=== PATIENT | female | born 1985 | race Caucasian/White ===

== ENCOUNTER 2017-10-08 14:53 | Emergency (ER) | payer BC ==
[~2017-10-08] VITALS: Ht 165.1 cm; Wt 54.4 kg
[2017-10-08] MEDS ORDERED: LAMO200T2 (15:01)
[2017-10-08] MEDS ORDERED: DESV50TA (15:01)
[2017-10-08 15:39] LABS: BILIRUBIN,URINE NEGATIVE (NEGATIVE); CLARITY,URINE CLEAR; COLOR,URINE YELLOW; GLUCOSE, URINE (UA) NEGATIVE (NEGATIVE); KETONES,URINE NEGATIVE (NEGATIVE); LEUKOCYTE ESTERASE ,URINE NEGATIVE (NEGATIVE); NITRITE,URINE NEGATIVE (NEGATIVE); PH,URINE 7 (5-9); PROTEIN,URINE NEGATIVE (NEGATIVE); UROBILINOGEN,URINE NORMAL (NORMAL)
[2017-10-08] MEDS ORDERED: NITR-65 PO (15:51)
[2017-10-08] MEDS ORDERED: TAMS0.4C98 PO (15:51)
--- NOTE | 2017-10-08 15:52 | ED GU-Female ---
General Chief Complaint: -Female Stated Complaint: UNABLE TO URINATE Nursing Triage Note: pt reports she had exploritory abdominal sx yesterday for possible cyst. pt states since the surgery she has had difficulty urinating. Nursing Sepsis Screen: No Definite Risk Source: patient History of Present Illness Date Seen by Provider: Oct 08, 2017 Time Seen by Provider: 15:25 Initial Comments PT ARRIVES VIA POV FROM HOME PT HAD EXPLORATORY ABDOMINAL SURGERY YESTERDAY AT [facility] BY DR. KWAN FROM [facility] [place] PT STATES THEY THOUGHT SHE HAD A HERNIA, BUT DID NOT FIND ONE--ONLY FOUND "KIDNEY IN THE WRONG PLACE" AND CLOSED HER BACK UP--NO REPAIR OF ANYTHING, ACCORDING TO PT WAS DISMISSED YESTERDAY AFTER SURGERY STATES SHE HAS NOT URINATED SINCE BEFORE SURGERY, AND HAS NOT HAD BM SINCE BEFORE SURGERY EITHER C/O MUCH PRESSURE OVER BLADDER, AND URGE TO URINATE BUT CANNOT NO FEVER NO NAUSEA/VOMITING PT IS ABLE TO EAT AND DRINK NO HISTORY OF SIMILAR CALLED SURGEON AG SERVICE MANAGER AT [facility], DR. BLANDON. WHO TOLD HER TO GO TO ER PCP: [facility] Allergies and Home Medications Allergies Coded Allergies: doxepin (Unverified Allergy, Unknown, 03/07/15) Home Medications Nitrofurantoin Monohyd/M-Cryst 100 Mg Capsule, 100 MG PO BID Prescribed by: LUTHER VERGARA on 10/08/17 1551 Tamsulosin HCl 0.4 Mg Cap, 0.4 MG PO DAILY Prescribed by: LUTHER VERGARA on 10/08/17 1551 Patient Home Medication List Home Medication List Reviewed: Yes Constitutional: no symptoms reported Respiratory: no symptoms reported Cardiovascular: no symptoms reported Gastrointestinal: see HPI Genitourinary: see HPI : No Musculoskeletal: no symptoms reported Skin: no symptoms reported Psychiatric/Neurological: No Symptoms Reported Past Okrauhd-Ulubai-Lgmivy Hx Patient Social History Alcohol Use: Regular Use (DRINKS SEVERAL GLASSES OF WINE EVERY NIGHT) Alcohol Beverage of Choice: Wine Recreational Drug Use: No Smoking Status: Current Everyday Smoker (1 PPD) Type Used: Cigarettes Recent Foreign Travel: No Contact w/Someone Who Travel: No Recent Infectious Disease Expo: No Recent Hopitalizations: Yes (abdominal sx yesterday) Physical Abuse: No Sexual Abuse: No Mistreated: No Fear: No Surgeries History of Surgeries: Yes (EXPLORATORY LAPAROTOMY 10/07/[address] KWAN FROM [place]) Surgeries: Abdominal, Section, Gallbladder Respiratory History of Respiratory Disorde: No Cardiovascular History of Cardiac Disorders: No Neurological History of Neurological Disord: No Reproductive System : No Female Reproductive Disorders: Denies Genitourinary History of Genitourinary Disor: No Gastrointestinal History of Gastrointestinal Di: No Musculoskeletal History of Musculoskeletal Dis: No Endocrine History of Endocrine Disorders: No HEENT History of HEENT Disorders: No Cancer History of Cancer: No Psychosocial History of Psychiatric Problem: Yes Behavioral Health Disorders: Depression Suicide Risk Score: 0 Integumentary History of Skin or Integumenta: No Blood Transfusions History of Blood Disorders: No Adverse Reaction to a Blood Tr: No Physical Exam Vital Signs Vital Signs - First Documented 10/08/17 15:27 Temp 97.0 Pulse 67 Resp 18 B/P (MAP) 137/92 (107) Pulse Ox 99 Capillary Refill : Less Than 3 Seconds General Appearance: WD/WN, no apparent distress, thin Cardiovascular: regular rate, rhythm, no murmur Respiratory: normal breath sounds, no respiratory distress, no accessory muscle use Gastrointestinal: normal bowel sounds, tenderness (MID ABDOMEN), other ( BLADDER DISTENDED. 4 CM SURGICAL INCISION TO RIGHT MID ABDOMEN IS INTACT, DRESSING CLEAN AND DRY. ) Back: normal inspection, no CVA tenderness Extremities: normal inspection, normal capillary refill Neurologic/Psychiatric: sheet rock taper II-XII nml as tested, no motor/sensory deficits, alert, normal mood/affect, oriented x 3 Progress/Results/Core Measures Suspected Sepsis Recent Fever Within 48 Hours: No Infection Criteria Present: None New/Unexplained Altered Menta: No Sepsis Screen: No Definite Risk Sepsis Diagnosis: SIRS Temperature:97.0 Pulse: 67 Respiratory Rate: 18 Blood Pressure 137 /92 Mean: 107 Results/Orders Lab Results Laboratory Tests Test 10/08/17 15:29 Range/Units Urine Color YELLOW Urine Clarity CLEAR Urine pH 7 5-9 Urine Specific [place] 1.005 L 1.016-1.022 Urine Protein NEGATIVE NEGATIVE Urine Glucose (UA) NEGATIVE NEGATIVE Urine Ketones NEGATIVE NEGATIVE Urine Nitrite NEGATIVE NEGATIVE Urine Bilirubin NEGATIVE NEGATIVE Urine Urobilinogen NORMAL NORMAL MG/DL Urine Leukocyte Esterase NEGATIVE NEGATIVE Urine RBC (Auto) NEGATIVE NEGATIVE Urine RBC NONE /HPF Urine WBC NONE /HPF Urine Crystals NONE /LPF Urine Bacteria NEGATIVE /HPF Urine Casts NONE /LPF Urine Mucus NEGATIVE /LPF Urine Culture Indicated NO Urine Test NEGATIVE NEGATIVE My Orders Orders - LUTHER VERGARA DO Catheter(Urinary) Insert & Ass 03,15 (10/08/17 15:30) Bladder Scan (10/08/17 15:30) Ua Culture If Indicated (10/08/17 15:30) Hcg,Qualitative Urine (10/08/17 15:48) Alfuzosin (Not Stocked) (Uroxatral (Not (10/08/17 16:00) Wound Dressing-Ed (10/08/17 16:18) Vital Signs/I&O Vital Sign - Last 12Hours 10/08/17 15:27 Temp 97.0 Pulse 67 Resp 18 B/P (MAP) 137/92 (107) Pulse Ox 99 Capillary Refill : Less Than 3 Seconds Blood Pressure Mean: 107 Progress Note : Progress Note BLADDER SCAN > 900 ML PLACED LAO AND IMMEDIATE RETURN OF > 1425 ML URINE WITH IMMEDIATE RELIEF OF DISCOMFORT CONVERTED TO LEG BAG PRIOR TO DISMISSAL Departure Impression Impression: Primary Impression: Acute urinary retention Additional Impression: Postoperative urinary retention Disposition: HOME, SELF-CARE Condition: Improved Departure-Patient Inst. [facility] Primary Care Physician Patient Instructions: How to Care for Your Lao Catheter, Female, Urinary Retention (DC) Add. Discharge Instructions: LOTS OF CLEAR LIQUIDS--NO COFFEE, POP OR TEA LAO CARE INSTRUCTED FOLLOW UP WITH YOUR SURGEON ON TUESDAY FOR FURTHER CARE All discharge instructions reviewed with patient and/or family. Voiced understanding. Scripts Tamsulosin HCl (Flomax) 0.4 Mg Cap 0.4 MG PO DAILY, #10 CAP Prov: LUTHER VERGARA DO 10/08/17 Nitrofurantoin Monohyd/M-Cryst (Macrobid 100 mg Capsule) 100 Mg Capsule 100 MG PO BID, #20 CAP Prov: LUTHER VERGARA DO 10/08/17 LUTHER VERGARA DO Oct 08, 2017 15:51
[2017-10-08] MEDS ORDERED: ALFUZOSIN HCL 10 MG TAB (UROXATRAL) PO SCH (16:00)
[2017-10-08 16:11] LABS: BACTERIA,URINE NEGATIVE /HPF
[2017-10-08 16:55] VITALS: BP 120/87
== END 2017-10-08 16:54 | disposition home or self-care (01) ==
LOC: EDUNIT# 14:53 → ER 14:55
DX: N99.89 Other postprocedural complications and disorders of genitourinary system (principal); R33.8 Other retention of urine; F32.9 Major depressive disorder, single episode, unspecified; F17.210 Nicotine dependence, cigarettes, uncomplicated; Z87.59 Personal history of other complications of pregnancy, childbirth and the puerperium; Z88.8 Allergy status to other drugs, medicaments and biological substances
CPT/HCPCS: 51702; 81000; 84703

== ENCOUNTER 2019-01-26 08:52 | Emergency (ER) | payer BC ==
[~2019-01-26] VITALS: Ht 165.1 cm; Wt 57.6 kg
[~2019-01-26 08:52] MED LIST: DESV50TA; LAMO200T2; NITR-65 PO; TAMS0.4C98 PO
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
--- OUTSIDE RECORDS SUMMARY | 2019-01-26 08:56 | XMS REPORT ---
Author Author Migration, Doctor Organization [facility]es[facility] [place] [facility] Address Unknown Phone Unavailable Care Team Providers Care Verification Specialist Name Role Phone Migration, Doctor Unavailable Unavailable PROBLEMS Type Condition ICD9-CM Code OSG38-HC Code Onset Dates Condition Status SNOMED Code Problem Asthma, unspecified asthma severity, unspecified whether complicated, unspecified whether persistent J45.909 Active 212784893 Problem Alcohol abuse F10.10 Active 28694985 Problem Bipolar 1 disorder F31.9 Active 789955175 ALLERGIES No Information ENCOUNTERS Encounter Location Date Diagnosis [facility] [address] [id number], [place] [id number] Oct, Bipolar 1 disorder F31.9 ; Alcohol abuse F10.10 ; Tobacco abuse Z72.0 and Tobacco abuse counseling Z71.[address] [facility] [id number], [place] [address] May, Nasal bleeding R04.0 ; Vaginal itching N89.8 and Injury of right shoulder, subsequent encounter S49.91XD [facility] [id number], [place] [address] Oct, Fatigue, unspecified type R53.83 ; Hair loss L65.9 and Bipolar 1 disorder F31.[address] [id number] [place] [id number] Sep, [facility] [id number] [place] [address] Sep, Bipolar 1 disorder F31.9 [facility] [id number], [place] [address] Aug, [facility] [address] [id number], [place] [address] Aug, RUQ abdominal mass R19.01 [facility] [address] [id number], [place] [address] Aug, [facility] [address] [id number], [place] [address] Aug, [facility] [address] [id number], [place] [address] Aug, Well woman exam with routine gynecological [...] Acute vaginitis N76.0 and Vagina, candidiasis B37.3 [facility] [address] [id number], [place] [address] Aug, Bipolar 1 disorder F31.9 and Acute non-recurrent maxillary sinusitis J01.00 [facility] [address] [id number], [place] [address] Aug, [facility] [address] [id number], [place] [address] Jun, Dental examination Z01.20 [facility] [address] [id number], [place] 98[address] November, Dental examination Z01.20 [facility] [address] [id number], [place] [address] Sep, Yeast infection B37.9 ; RUQ abdominal mass R19.01 and EtOH dependence F10.[address] [id number], [place] [address] Sep, Vaginal itching L29.8 [facility] [address] [id number] [address] Oct, [facility] [address] [place] [address] Oct, [facility] [address] [facility] [id number], [place] [address] Jan, [facility] [address] [facility] [id number] [place] [address] Sep, [facility] [address] [facility] [id number], [place] [address] Sep, [facility] [address] [facility] [id number] [place] [address] Sep, [facility] [place] [address] [id number] [place] [id number] Aug, [facility] [place] [address] [id number] [place] [address] Jul, [facility] [address] [facility] [id number], [place] [address] Jul, [facility] [place] [address] [id number] [place] [address] Mar, [facility] [place] [address] [id number] [place] [address] Mar, [facility] [place] [address] [id number] [place] [address] Mar, [facility] [place] [address] [id number] [place] [address] Mar, [facility] [place] [address] [id number] [place] [address] Mar, [facility] [address] [facility] [id number], [place] [address] Mar, [facility] [place] [facility] [address] [facility] [id number], [place] [address] Mar, [facility] [place] [facility] [address] [facility] [id number], [place] [address] Mar, [facility] [place] [facility] [address] [facility] [id number], [place] [address] Mar, [facility] [place] [address] [facility] [id number], [place] [address] Mar, [facility] [address] [id number] [place] [address] Jan, [facility] [address] [id number] [place] [address] Jan, [facility] [address] [facility] [id number] [place] [address] Jan, [facility] [address] [id number], [place] [address] Dec, [facility] [address] [id number] [place] [address] Dec, [facility] [address] [id number], [place] [address] November, [facility] [address] [id number], [place] [address] Oct, [facility] [address] [id number], [place] [address] Sep, [facility] [address] [id number], [place] [address] Sep, [facility] [address] [id number], [place] [address] Sep, [facility] [address] [id number], [place] [address] Sep, [facility] [address] [facility] [id number], [place] [address] Sep, [facility] [address] [facility] [id number], [place] [address] Sep, [facility] [place] [address] [facility] [id number], [place] [id number] Aug, [facility] [address] [id number], [place] [address] May, [facility] [address] [facility] [id number] [place] [address] Dec, [facility] [address] [facility] [id number], [place] [address] Jun, [facility] [address] [facility] [id number], [place] [address] Jun, [facility] [address] [facility] [id number], [place] [address] Jun, IMMUNIZATIONS No Known Immunizations SOCIAL HISTORY Never Assessed REASON FOR VISIT [facility] [place] CARE VITAL SIGNS MEDICATIONS No [...]
--- OUTSIDE RECORDS SUMMARY | 2019-01-26 08:57 | XMS REPORT ---
Author Author Migration, Doctor Organization [facility]ITALTheng[facility] [place] [facility] Address Unknown Phone Unavailable Care Team Providers Care Asbestos Remover Name Role Phone Migration, Doctor Unavailable Unavailable PROBLEMS Type Condition ICD9-CM Code LMV45-DK Code Onset Dates Condition Status SNOMED Code Problem Bipolar 1 disorder F31.9 Active 533672536 ALLERGIES No Information ENCOUNTERS Encounter Location Date Diagnosis [facility] [address] [id number] [place] [id number] May, Nasal bleeding R04.0 ; Vaginal itching N89.8 and Injury of right shoulder, subsequent encounter S49.91XD [facility] [address] [id number] [place] [address] Oct, Fatigue, unspecified type R53.83 ; Hair loss L65.9 and Bipolar 1 disorder F31.9 [facility] [facility] [id number] [place] [address] Sep, [facility] [address] [id number] [place] [address] Sep, Bipolar 1 disorder F31.9 [facility] [address] [id number] [place] [address] Aug, [facility] [address] [id number] [place] [address] Aug, RUQ abdominal mass R19.[address] [id number] [place], [place] [address] Aug, [facility] [id number] [place] [id number] Aug, [facility] [address] [id number] [place] [address] Aug, Well woman exam with routine gynecological [...] Acute vaginitis N76.0 and Vagina, candidiasis B37.[address] [id number] [place] [id number] Aug, Bipolar 1 disorder F31.9 and Acute non-recurrent maxillary sinusitis J01.[id number] [place] [id number] Aug, [address] [place] [id number] Jun, Dental examination Z01.20 [address] [place] [address] [id number] November, Dental examination Z01.[address] [id number] [place] [address] [id number] Sep, Yeast infection B37.9 ; RUQ abdominal mass R19.01 and EtOH dependence F10.[address] [id number] [place] [address]25[address] 10 Sep, 2015 Vaginal itching L29.8 [id number] [place] [address] Oct, [facility] [place] [id number] [place] [address] Oct, [facility] [place] [address] [address] Jan, [facility] [place] [id number] [place] [address] Sep, [facility] [place] [id number] [place] [address] Sep, [facility] [place] [facility] [address] [id number] [place] [address] Sep, [facility] [place] [address] [id number] [place] [address] Aug, [facility] [place] [address] [id number] [place] [id number] Jul, [facility] [place] [facility] [address] [id number] [place] [address] Jul, [facility] [place] [address] [id number] [place] [address] Mar, [facility] [place] [address] [id number] [place] [address] Mar, [facility] [place] [address] [id number] [place] [address] Mar, [facility] [place] [address] [id number] [place] [address] Mar, [facility] [place] [address] [id number] [place] [id number] Mar, [facility] [place] [facility] [address] [facility] [id number] [place] [address] Mar, [facility] [place] [facility] [address]00565100[place], [place] [address] Mar, [facility] [place] [facility] [address]00565100[place], [place] [address] Mar, [facility] [place] [facility] [address] [facility] [id number], [place] [address] Mar, [facility] [place] [address] [facility] [id number] [place] [id number] Mar, [facility] [place] [facility] [address] [facility] [id number] [place] [address] Jan, [facility] [place] [facility] [address] [facility] [id number], [place] [address] Jan, [facility] [place] [facility] [address] [facility] [id number], [place] [address] Jan, [facility] [address] [id number] [place] [address] 28 Dec, 2011 [facility] [place] [facility] [address] [id number] [place] [address] Dec, [facility] [address] [id number] [place] [address] November, [facility] [place] [facility] [address] [id number] [place] [address] Oct, [facility] [address] [id number] [place] [address] Sep, [facility] [address] [id number] [place] [address] Sep, [facility] [place] [facility] [address] [id number] [place] [address] Sep, [facility] [place] [facility] [address] [id number] [place] [address] Sep, [facility] [address] [id number], [place] [address] Sep, [facility] [address] [facility] [id number], [place] [address] Sep, [facility] [address] [id number][place] [id number] Aug, [facility] [place] [facility] [address] [id number], [place] [address] May, [facility] [place] [facility] [address] [id number], [place] [address] 14 Dec, 2010 [facility] [place] [facility] [address] [facility] [id number], [place] [address] Jun, [facility] [place] [facility] [address] [id number], [place] [address] Jun, [facility] [place] [facility] [address] [facility] [id number] [place] [address] Jun, IMMUNIZATIONS No Known Immunizations SOCIAL HISTORY Never Assessed [place] [facility] [place] VITAL SIGNS MEDICATIONS Unknown Medications RESULTS No Results PROCEDURES No Known [...]
--- OUTSIDE RECORDS SUMMARY | 2019-01-26 08:57 | XMS REPORT ---
Author Author LITO RIVERO [facility] CenterAppw[facility] W[facility] Address [address] [place] [address] Care Team Providers Care Hand I Thermal Cutter Name Role Phone LITO RIVERO Unavailable PROBLEMS Type Condition ICD9-CM Code PFB36-OP Code Onset Dates Condition Status SNOMED Code Problem Bipolar 1 disorder F31.9 Active 251432134 ALLERGIES Substance Reaction Event Type Date Status Doxepin HCl hives Drug Allergy May, Active Codeine Phosphate hives Drug Allergy May, Active ENCOUNTERS Encounter Location Date Diagnosis [facility] [address] [id number], [place] [id number] May, Nasal bleeding R04.0 ; Vaginal itching N89.8 and Injury of right shoulder, subsequent encounter S49.91XD [facility] [address] [id number][place] [address] Oct, Fatigue, unspecified type R53.83 ; Hair loss L65.9 and Bipolar 1 disorder F31.9 [facility]CostumeWorksW[facility] [address] [id number], [place] [id number] Sep, [facility] [address] [id number], [place] [address] Sep, Bipolar 1 disorder F31.9 [facility] [address] [id number], [place] [address] Aug, [facility] [address] [id number], [place] 786[address] Aug, RUQ abdominal mass R19.01 [facility] [address] [id number], [place] 216965606 Aug, [facility] [address] [id number], [place] [address] Aug, [facility] [address] [id number], [place] [address] Aug, Well woman exam with routine gynecological [...] Acute vaginitis N76.0 and Vagina, candidiasis B37.[id number] [place] [address] 280848569 Aug, Bipolar 1 disorder F31.9 and Acute non-recurrent maxillary sinusitis J01.[address] [id number], [place] 9129540[address] Aug, [address] [id number] [place] [address] [id number] Jun, Dental examination Z01.[address] [id number] [place] [address] [id number] November, Dental examination Z01.[address] [id number], [place] 224147290 Sep, Yeast infection B37.9 ; RUQ abdominal mass R19.01 and EtOH dependence F10.[address] [id number], [place] 004505383 10 Sep, [address] [facility] [address] [id number] [address] Oct, [facility] [id number] [place] [address] Oct, [facility] [address] [place] [address] Jan, [facility] [place] [facility] [address] [facility] [id number] [place] [address] Sep, [facility] [place] [facility] [address] [facility] [id number] [place] [address] Sep, [facility] [place] [facility] [address] [facility] [id number] [place] [address] Sep, [facility] [place] [address] [id number] [place] [id number] Aug, [facility] [place] [address] [id number] [place] [address] Jul, [facility] [place] [facility] [address] [id number] [place] [address] Jul, [facility] [place] [address] [id number] [place] [id number] Mar, [facility] [place] [address] [id number] [place] [address]16[address] Mar, [facility] [place] [address] [id number] [place] [address] Mar, [facility] [place] [address] [id number] [place] [address] Mar, [facility] [place] [address] [id number] [place] 795[address] Mar, [facility] [place] [facility] [address] [facility] [id number] [place] [address] Mar, [facility] [place] [facility] [address] [facility] [id number] [place] [address] Mar, [facility] [place] [facility] [address] [facility] [id number] [place] [address] Mar, [facility] [place] [facility] [address] [facility] [id number] [place] [address] Mar, [facility] [place] [address] [facility] [id number] [place] [id number] Mar, [facility] [place] [facility] [address] [facility] [id number] [place] [address] Jan, [facility] [address] [id number] [place] [address] Jan, [facility] [place] [facility] [address] [id number] [place] [address] Jan, [facility] [address] [id number] [place] [address] Dec, [facility] [place] [facility] [address] [id number] [place] [address] Dec, [facility] [address] [id number] [place] [address] November, [facility] [place] [facility] [address] [id number] [place] [address] Oct, [facility] [address] [facility] [id number] [place] [address] Sep, [facility] [address] [id number] [place] [address] Sep, [facility] [address] [id number] [place] [address] Sep, [facility] [address] [id number] [address] Sep, [facility] [address] [id number] [place] [address] Sep, [facility] [place] [facility] [address] [facility] [id number] [place] [address] Sep, [facility] [place] [address] [facility] [id number][place] [id number] Aug, [facility] [place] [facility] [address] [facility] [id number] [place] [address] May, [facility] [place] [facility] [address] [facility] [id number] [place] [address] 14 Dec, 2010 [facility] [place] [facility] [address]00565[address] [address] Jun, [facility] [address] [facility] [id number] [place] [address] Jun, [facility] [address] [facility] [id number] [place] [address] Jun, IMMUNIZATIONS No Known Immunizations SOCIAL HISTORY Never Assessed REASON FOR VISIT yeast infection symptoms intermittent for several weeks Bigg RN PLAN OF CARE Activity Details Follow Up prn Reason: VITAL SIGNS Height 68.75 in 2018-05-05 Weight 125.0 lbs 2018-05-05 Temperature 98.3 degrees Fahrenheit 2018-05-05 Heart Rate 70 bpm 2018-05-05 Respiratory Rate 18 2018-05-05 BMI 18.59 kg/m2 2018-05-05 Blood pressure systolic 118 mmHg 2018-05-05 Blood pressure diastolic 82 mmHg 2018-05-05 MEDICATIONS Medication Instructions Dosage Frequency Start Date End Date Duration Status Fluconazole 150 MG Orally Once a day 1 tablet 24h May, May, 1 dose Active Pristiq 50 mg Orally Once a day 1 tablet 24h Active Lamictal 200 MG Orally once daily 1 tablet 24h Sep, 90 days Active Nystatin-Triamcinolone 238041-1.1 UNIT/GM Externally Twice a day as needed for vaginal itch 1 application to affected area May, Active RESULTS No Results PROCEDURES No Known [...]
--- OUTSIDE RECORDS SUMMARY | 2019-01-26 08:57 | XMS REPORT ---
Author Author Migration, Doctor Organization [facility] [place] [facility] Address Unknown Phone Unavailable Care Team Providers Care Billing Assistant Name Role Phone Migration, Doctor Unavailable Unavailable PROBLEMS Type Condition ICD9-CM Code [id number] Code Onset Dates Condition Status SNOMED Code Problem Bipolar 1 disorder F31.9 Active 492924116 ALLERGIES No Information ENCOUNTERS Encounter Location Date Diagnosis [facility] [address] [address] [id number], [place] [id number] Oct, [facility] [address] [id number], [place] [id number] May, Nasal bleeding R04.0 ; Vaginal itching N89.8 and Injury of right shoulder, subsequent encounter S49.91XD [facility] [id number], [place] [id number] Oct, Fatigue, unspecified type R53.83 ; Hair loss L65.9 and Bipolar 1 disorder F31.9 [facility] [address] [id number], [place] [id number] Sep, [facility] [address] [id number], [place] [id number] Sep, Bipolar 1 disorder F31.9 [facility] [address] [id number], [place] [id number] Aug, [facility] [address] [id number], [place] [id number] Aug, RUQ abdominal mass R19.01 [facility] [address] [id number] [place] [id number] Aug, [facility] [address] [id number], [place] [id number] Aug, [facility] [address] [id number], [place] [id number] 04 Aug, 2018 Well woman exam with [...] Acute vaginitis N76.0 and Vagina, candidiasis B37.[id number] [place] [address] [id number] Aug, Bipolar 1 disorder F31.9 and Acute non-recurrent maxillary sinusitis J01.[address] [id number] [place] [address] [id number] Aug, [address] [id number] [place] [address] [id number] Jun, Dental examination Z01.[address] [id number] [place] [address] [id number] November, Dental examination Z01.20 [address] [place] [address] [id number] Sep, Yeast infection B37.9 ; RUQ abdominal mass R19.01 and EtOH dependence F10.[address] [id number], [place] [id number] Sep, Vaginal itching L29.8 [facility] [id number] [place] [address] Oct, [facility] [id number] [place] [address] Oct, [facility] [id number] [place] [address] Jan, [facility] [id number] [place] [address] Sep, [facility] [place] [facility] [address] [id number] [place] [address] Sep, [facility] [place] [facility] [address] [facility] [id number] [place] [address] Sep, [facility] [address] [id number] [place] [id number] Aug, [facility] [address] [id number] [place] [id number] Jul, [facility] [place] [facility] [address] [id number] [place] [address] Jul, [facility] [address] [id number] [place] [id number] Mar, [facility] [address] [id number] [place] [id number] Mar, [facility] [address] [id number] [place] [id number] Mar, [facility] [address] [id number] [place] [id number] Mar, [facility] [address] [id number] [place] [id number] Mar, [facility] [place] [facility] [address]00565100[place] [address] Mar, [facility] [place] [facility] [address] [place] [address] Mar, [facility] [place] [facility] [address] [facility] [id number], [place] [address] Mar, [facility] [place] [facility] [address] [facility] [id number] [place] [address] Mar, [facility] [address] [facility] [id number] [place] [id number] Mar, [facility] [place] [facility] [address] [facility] [id number] [place] [address] Jan, [facility] [place] [facility] [address] [facility] [id number], [place] [address] Jan, [facility] [address] [id number] [place] [address] Jan, [facility] [place] [facility] [address] [id number] [place] [address] Dec, [facility] [place] [facility] [address] [id number] [place] [address] Dec, [facility] [place] [facility] [address] [id number] [place] [address] November, [facility] [address] [id number] [place] [address] Oct, [facility] [place] [facility] [address] [id number] [place] [address] Sep, [facility] [address] [id number] [place] [address] Sep, [facility] [place] [facility] [address] [id number] [place] [address] Sep, [facility] [address] [id number] [place] [address] Sep, [facility] [place] [facility] [address] [facility] [id number] [place] [address] Sep, [facility] [address] [id number], [place] [address] Sep, [facility] [address] [id number], [place] [id number] Aug, [facility] [place] [facility] [address] [id number] [place] [address] May, [facility] [place] [facility] [address] [id number], [place] [address] 14 Dec, 2010 [facility] [place] [facility] [address] [id number], [place] [address] Jun, [facility] [place] [facility] [address] [facility] [id number] [place] [address] Jun, [facility] [address] [facility] [id number] [place] [address] Jun, IMMUNIZATIONS No Known Immunizations SOCIAL HISTORY Never Assessed REASON FOR VISIT EMR-[facility] PLAN OF CARE VITAL SIGNS MEDICATIONS [...]
--- OUTSIDE RECORDS SUMMARY | 2019-01-26 08:57 | XMS REPORT ---
Author Author Migration, Doctor Organization [facility] [place] [facility] Address Unknown Phone Unavailable Care Team Providers Care Software Controls Engineer Name Role Phone Migration, Doctor Unavailable Unavailable PROBLEMS Type Condition ICD9-CM Code [id number] Code Onset Dates Condition Status SNOMED Code Problem Bipolar 1 disorder F31.9 Active [id number] ALLERGIES No Information ENCOUNTERS Encounter Location Date Diagnosis [facility] [address] [id number], [place] [id number] Oct, [facility] [address] [id number], [place] [id number] May, Nasal bleeding R04.0 ; Vaginal itching N89.8 and Injury of right shoulder, subsequent encounter S49.91XD [facility] [id number], [place] [id number] Oct, Fatigue, unspecified type R53.83 ; Hair loss L65.9 and Bipolar 1 disorder F31.9 [facility] [id number], [place] [id number] Sep, [facility] [address] [id number], [place] [id number] Sep, Bipolar 1 disorder F31.9 [facility] [address] [address] [id number], [place] [id number] Aug, [facility] [address] [id number], [place] [id number] Aug, RUQ abdominal mass R19.01 [facility] [address] [id number] [place] [id number] Aug, [facility] [address] [id number], [place] [id number] Aug, [facility] [address] [id number], [place] [id number] 04 Aug, 2018 Well woman exam with [...] Acute vaginitis N76.0 and Vagina, candidiasis B37.[address] [id number] [place] [address] [id number] Aug, Bipolar 1 disorder F31.9 and Acute non-recurrent maxillary sinusitis J01.[address] [id number] [place] [address] [id number] Aug, [address] [id number] [place] [address] [id number] Jun, Dental examination Z01.[address] [id number] [place] [address] [id number] November, Dental examination Z01.[address] [place] [address] [id number] Sep, Yeast infection B37.9 ; RUQ abdominal mass R19.01 and EtOH dependence F10.[address] [id number], [place] [id number] Sep, Vaginal itching L29.8 [facility] [id number] [place] [address] Oct, [facility] [id number] [place] [address] Oct, [facility] [id number] [place] [address] Jan, [facility] [id number] [place] [address] Sep, [facility] [place] [facility] [address] [id number] [place] [address] Sep, [facility] [place] [facility] [address] [facility] [id number] [place] [address] Sep, [facility] [address] [id number] [place] [id number] Aug, [facility] [address] [id number] [place] [id number] Jul, [facility] [place] [facility] [address] [id number] [place] [address] Jul, [facility] [address] [id number] [place] [id number] Mar, [facility] [address] [id number] [place] [id number] Mar, [facility] [address] [id number] [place] [id number] Mar, [facility] [address] [id number] [place] [id number] Mar, [facility] [address] [id number] [place] [id number] Mar, [facility] [place] [facility] [address]00565100[place] [address] Mar, [facility] [place] [facility] [address]100[facility] [address] Mar, [facility] [place] [facility] [address] [facility] [id number][place] [address] Mar, [facility] [place] [facility] [address] [facility] [id number] [place] [address] Mar, [facility] [address] [facility] [id number] [place] [id number] Mar, [facility] [place] [facility] [address] [facility] [id number] [place] [address] Jan, [facility] [place] [facility] [address] [facility] [id number][place] [address] Jan, [facility] [address] [id number] [place] [address] Jan, [facility] [place] [facility] [address] [id number] [place] [address] Dec, [facility] [place] [facility] [address] [id number] [place] [address] Dec, [facility] [place] [facility] [address] [id number] [place] [address] November, [facility] [address] [id number] [place] [address] Oct, [facility] [place] [facility] [address] [id number] [place] [address] Sep, [facility] [address] [id number] [place] [address] Sep, [facility] [place] [facility] [address] [id number] [place] [address] Sep, [facility] [address] [id number] [place] [address] Sep, [facility] [place] [facility] [address] [facility] [id number] [place] [address] Sep, [facility] [address] [id number], [place] [address] Sep, [facility] [address] [id number][place] [address] Aug, [facility] [place] [facility] [address] [id number] [place] [address] May, [facility] [place] [facility] [address] [id number], [place] [address] 14 Dec, 2010 [facility] [place] [facility] [address] [id number], [place] [address] Jun, [facility] [place] [facility] [address] [facility] [id number] [place] [address] Jun, [facility] [address] [facility] [id number] [place] [address] Jun, IMMUNIZATIONS No Known Immunizations SOCIAL HISTORY Never Assessed REASON FOR VISIT EMR-[facility] PLAN OF CARE VITAL SIGNS MEDICATIONS Unknown [...]
--- OUTSIDE RECORDS SUMMARY | 2019-01-26 08:57 | XMS REPORT ---
Author Author Migration, Doctor Organization [facility] [place] [facility] Address Unknown Phone Unavailable Care Team Providers Care Underground Conduit Installer Name Role Phone Migration, Doctor Unavailable Unavailable PROBLEMS Type Condition ICD9-CM Code HWW28-IW Code Onset Dates Condition Status SNOMED Code Problem Bipolar 1 disorder F31.9 Active 847346206 ALLERGIES No Information ENCOUNTERS Encounter Location Date Diagnosis [facility] [address] [id number], [place] [id number] Oct, [facility] [address] [id number], [place] [id number] May, Nasal bleeding R04.0 ; Vaginal itching N89.8 and Injury of right shoulder, subsequent encounter S49.91XD [facility] [id number], [place] [id number] Oct, Fatigue, unspecified type R53.83 ; Hair loss L65.9 and Bipolar 1 disorder F31.9 [facility] [address] [address] [id number], [place] [id number] Sep, [facility] [address] [id number], [place] [id number] Sep, Bipolar 1 disorder F31.9 [facility] [address] [address] [id number], [place] [id number] Aug, [facility]ENTERSEMJHWOLFF [address] [id number], [place] [id number] Aug, RUQ abdominal mass R19.01 [facility] [address] [id number] [place] [id number] Aug, [facility] [address] [id number], [place] [id number] Aug, [facility] [address] [id number], [place] [id number] 04 Aug, 2018 Well woman exam with [...] Acute vaginitis N76.0 and Vagina, candidiasis B37.[address] [id number] [place] [address] [id number] Aug, Bipolar 1 disorder F31.9 and Acute non-recurrent maxillary sinusitis J01.[address] [id number] [place] [address] [id number] Aug, [address] [id number] [place] [address] [id number] Jun, Dental examination Z01.[address] [id number] [place] [address] [id number] November, Dental examination Z01.20 [address] [place] [address] [id number] Sep, Yeast infection B37.9 ; RUQ abdominal mass R19.01 and EtOH dependence F10.[address] [id number], [place] [id number] Sep, Vaginal itching L29.8 [facility] [address] [id number] [place] [address] Oct, [facility] [id number] [place] [address] Oct, [facility] [id number] [place] [address] Jan, [facility] [id number] [place] [address] Sep, [facility] [place] [facility] [address] [id number] [place] [address] Sep, [facility] [place] [facility] [address] [facility] [id number] [place] [address] Sep, [facility] [address] [id number] [place] [id number] Aug, [facility] [address] [id number] [place] [id number] Jul, [facility] [place] [facility] [address] [id number] [place] [address] Jul, [facility] [address] [id number] [place] 788658747 Mar, [facility] [address] [id number] [place] [id number] Mar, [facility] [address] [id number] [place] [id number] Mar, [facility] [address] [id number] [place] 033007686 Mar, [facility] [address] [id number] [place] [id number] Mar, [facility] [place] [facility] [address]00565100[place], [place] [address] Mar, [facility] [place] [facility] [address] [address] Mar, [facility] [place] [facility] [address] [facility] [id number], [place] [address] Mar, [facility] [place] [facility] [address] [facility] [id number] [place] [address] Mar, [facility] [address] [facility] [id number] [place] [id number] Mar, [facility] [place] [facility] [address] [facility] [id number] [place] [address] Jan, [facility] [place] [facility] [address] [facility] [id number], [place] [address] Jan, [facility] [address] [id number] [place] [address] Jan, [facility] [place] [facility] [address] [id number] [place] [address] Dec, [facility] [place] [facility] [address] [id number] [place] [address] Dec, [facility] [place] [facility] [address] [id number] [place] [address] November, [facility] [address] [id number] [place] [address] Oct, [facility] [place] [facility] [address] [id number] [place] [address] Sep, [facility] [address] [id number] [place] [address] Sep, [facility] [place] [facility] [address] [id number] [place] [address] Sep, [facility] [address] [id number] [place] [address] Sep, [facility] [place] [facility] [address] [facility] [id number] [place] [address] Sep, [facility] [address] [id number], [place] [address] Sep, [facility] [address] [id number], [place] [id number] Aug, [facility] [place] [facility] [address] [id number] [place] [address] May, [facility] [place] [facility] [address] [id number], [place] [address] 14 Dec, 2010 [facility] [place] [facility] [address] [id number], [place] [address] Jun, [facility] [place] [facility] [address] [facility] [id number] [place] [address] Jun, [facility] [address] [facility] [id number] [place] [address] Jun, IMMUNIZATIONS No Known Immunizations SOCIAL HISTORY Never Assessed REASON FOR VISIT [place] [place] VITAL SIGNS MEDICATIONS Unknown [...]
--- OUTSIDE RECORDS SUMMARY | 2019-01-26 08:58 | XMS REPORT ---
Author Author LITO RIVERO [facility] Address [address] [place] [address] Care Team Providers Care Seamer Operator Name Role Phone LITO RIVERO Unavailable PROBLEMS Type Condition ICD9-CM Code AFL51-SU Code Onset Dates Condition Status SNOMED Code Problem Bipolar 1 disorder F31.9 Active [id number] ALLERGIES Substance Reaction Event Type Date Status Doxepin HCl hives Drug Allergy Aug, Active Codeine Phosphate hives Drug Allergy Aug, Active SOCIAL HISTORY No smoking Hx information available PLAN OF CARE Activity Details Follow Up 1 Year Reason:Bipolar VITAL SIGNS Height 68.75 in 2016-08-30 Weight 122.6 lbs 2016-08-30 Temperature 98.1 degrees Fahrenheit 2016-08-30 Heart Rate 78 bpm 2016-08-30 Respiratory Rate 18 2016-08-30 BMI 18.23 kg/m2 2016-08-30 Blood pressure systolic 110 mmHg 2016-08-30 Blood pressure diastolic 68 mmHg 2016-08-30 MEDICATIONS Medication Instructions Dosage Frequency Start Date End Date Duration Status Pristiq 50 mg Orally Once a day 1 tablet 24h Active Augmentin 500-125 MG Active Nasonex 50 MCG/ACT Nasally Once a day (340b) 1 sprays in each nostril Aug, Active Lamictal 200 mg Orally Once a day take 1.5 tablet 24h Aug, Active RESULTS No Results PROCEDURES Procedure Date Ordered Related Diagnosis Body Site Office Visit, Est Pt., Level 3 Aug 30, 2016 IMMUNIZATIONS No Known Immunizations
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
--- OUTSIDE RECORDS SUMMARY | 2019-01-26 08:58 | XMS REPORT ---
Author Author LITO RIVERO [facility] Address [address] [place] [address] Care Team Providers Care Sales Center Manager Name Role Phone LITO RIVERO Unavailable PROBLEMS Type Condition ICD9-CM Code YPO54-CH Code Onset Dates Condition Status SNOMED Code Problem Bipolar 1 disorder F31.9 Active 028049530 ALLERGIES No Information ENCOUNTERS Encounter Location Date Diagnosis [facility] [address] [id number] [id number] Oct, Fatigue, unspecified type R53.83 ; Hair loss L65.9 and Bipolar 1 disorder F31.9 [facility] [address] [id number], [place] [id number] Sep, [facility] [address] [id number][place] [id number] Sep, Bipolar 1 disorder F31.9 [facility] [address] [id number], [place] [id number] Aug, [facility] [address] [id number], [place] [id number] Aug, RUQ abdominal mass R19.01 [facility] [address] [id number], [place] [id number] Aug, [facility] [id number], [place] [id number] Aug, [facility] [id number], [place] [phone] Aug, Well woman exam with routine gynecological [...] Acute vaginitis N76.0 and Vagina, candidiasis B37.[address] [id number], [place] [id number] Aug, Bipolar 1 disorder F31.9 and Acute non-recurrent maxillary sinusitis J01.[id number] [place] [address] [id number] Aug, [place] [id number] [place] [address] [id number] Jun, Dental examination Z01.[address] [place] [address] [id number] November, Dental examination Z01.[address] [place] [address] [id number] Sep, Yeast infection B37.9 ; RUQ abdominal mass R19.01 and EtOH dependence F10.[id number] [place] [address] [id number] 10 Sep, 2015 Vaginal itching L29.8 [facility] [id number] [place] [address] Oct, [facility] [id number] [place] [address] Oct, [facility] [id number] [place] [address] Jan, [facility] [address] [address] Sep, [facility] [id number] [place] [address] Sep, [facility] [address] [address] Sep, [facility] [place] [address] [id number] [place] [id number] Aug, [facility] [place] [address] [id number] [place] [id number] Jul, [facility] [place] [facility] [address] [id number], [place] [address] Jul, [facility] [place] [address] [id number] [place] [address] Mar, [facility] [place] [address] [id number] [place] [id number] Mar, [facility] [place] [address] [id number] [place] [id number] Mar, [facility] [place] [address] [id number] [place] [id number] Mar, [facility] [place] [address] [id number] [place] [id number] Mar, [facility] [place] [facility] [address]00565100[place], [place] [address] Mar, [facility] [place] [facility] [address] [facility] [id number], [place] [address] Mar, [facility] [place] [facility] [address]00565100[place], [place] [address] Mar, [facility] [place] [facility] [address]00565100[place], [place] [address] Mar, [facility] [place] [address] [facility] [id number], [place] [id number] Mar, [facility] [place] [facility] [address] [facility] [id number], [place] [address] Jan, [facility] [place] [facility] [address] [facility] [id number], [place] [address] Jan, [facility] [place] [facility] [address] [facility] [id number], [place] [address] Jan, [facility] [place] [facility] [address]00565100[place], [place] [address] Dec, [facility] [address] [id number], [place] [address] Dec, [facility] [address] [facility] [id number], [place] [address] November, [facility] [address] [facility] [id number], [place] [address] Oct, [facility] [address] [id number], [place] [address] Sep, [facility] [address] [facility] [id number], [place] [address] Sep, [facility] [address] [facility] [id number], [place] [address] Sep, [facility] [address]00565100[place], [place] [address] Sep, [facility] [address] [id number], [place] [address] Sep, [facility] [address] [id number], [place] [address] Sep, [facility] [address] [id number], [place] [id number] Aug, [facility] [address] [id number], [place] [address] May, [facility] [address] [id number], [place] [address] Dec, [facility] [address] [facility] [id number], [place] [address] Jun, [facility] [address] [facility] [id number], [place] [address] Jun, [facility] [address] [id number], [place] [address] Jun, IMMUNIZATIONS No Known Immunizations SOCIAL HISTORY Never Assessed REASON FOR VISIT Requests return call PLAN OF CARE VITAL SIGNS MEDICATIONS Unknown [...]
--- OUTSIDE RECORDS SUMMARY | 2019-01-26 08:58 | XMS REPORT ---
Author Author JAYLA DIANE [facility] Address Unknown Phone Unavailable Care Team Providers Care Web Content Developer Name Role Phone JAYLA DIANE Unavailable Unavailable PROBLEMS Type Condition ICD9-CM Code VIF64-QF Code Onset Dates Condition Status SNOMED Code Problem Bipolar 1 disorder F31.9 Active [id number] ALLERGIES No Known Allergies SOCIAL HISTORY No smoking Hx information available PLAN OF CARE VITAL SIGNS MEDICATIONS No Known Medications RESULTS No Results PROCEDURES No Known procedures IMMUNIZATIONS No Known Immunizations
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
--- OUTSIDE RECORDS SUMMARY | 2019-01-26 08:59 | XMS REPORT ---
Author Author GRAHAM CONKLIN [facility] Address Unknown Care Team Providers Care Rolling Mill Plugger Name Role Phone GRAHAM CONKLIN Unavailable PROBLEMS Type Condition ICD9-CM Code TGR45-DH Code Onset Dates Condition Status SNOMED Code Problem Bipolar 1 disorder F31.9 Active 394204203 ALLERGIES Substance Reaction Event Type Date Status Doxepin HCl hives Drug Allergy Jun, Active Codeine Phosphate hives Drug Allergy Jun, Active SOCIAL HISTORY No smoking Hx information available PLAN OF CARE Activity Details Follow Up prn Reason:fillings VITAL SIGNS Blood pressure systolic 112 mmHg 2016-06-07 Blood pressure diastolic 69 mmHg 2016-06-07 MEDICATIONS Medication Instructions Dosage Frequency Start Date End Date Duration Status Lamictal 200 MG Orally Once a day take 1.5 tablet by Oral route 1 time per day for mood 24h Aug, Active RESULTS No Results PROCEDURES Procedure Date Ordered Related Diagnosis Body Site RESIN COMPOS - 2 SURFACES POSTERIOR Jun 07, 2016 Billing Notes on claim Jun 07, 2016 IMMUNIZATIONS No Known Immunizations
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
--- OUTSIDE RECORDS SUMMARY | 2019-01-26 08:59 | XMS REPORT ---
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 Name Role Phone LITO RIVERO Unavailable PROBLEMS Type Condition ICD9-CM Code TMR28-OT Code Onset Dates Condition Status SNOMED Code Problem Bipolar 1 disorder F31.9 Active [id number] ALLERGIES No Information ENCOUNTERS Encounter Location Date Diagnosis [facility] [address] [id number] [id number] Oct, Fatigue, unspecified type R53.83 ; Hair loss L65.9 and Bipolar 1 disorder F31.9 [facility] [address] [id number][place] [id number] Sep, [facility] [address] [id number][place] [id number] Sep, Bipolar 1 disorder F31.9 [facility] [address] [id number][place] [id number] Aug, [facility] [address] [id number][place] [id number] Aug, RUQ abdominal mass R19.01 [facility] [address] [id number], [place] [id number] Aug, [facility] [id number][place] [id number] Aug, [facility] [id number][place] [id number] Aug, Well woman exam with routine gynecological [...] Acute vaginitis N76.0 and Vagina, candidiasis B37.[address] [id number], [place] [id number] Aug, Bipolar 1 disorder F31.9 and Acute non-recurrent maxillary sinusitis J01.[id number] [place] [id number] Aug, [place] [id number] [place] [id number] Jun, Dental examination Z01.[address] [place] [id number] November, Dental examination Z01.20 [address] [place] [id number] Sep, Yeast infection B37.9 ; RUQ abdominal mass R19.01 and EtOH dependence F10.[id number] [place] [id number] 10 Sep, 2015 Vaginal itching L29.8 [facility] [id number] [place] [address] Oct, [facility] [id number] [place] [address] Oct, [facility] [id number] [place] [address] Jan, [facility] [address] [address] Sep, [facility] [id number] [place] [address] Sep, [facility] [address] [address] Sep, [facility] [address] [id number] [place] [id number] Aug, [facility] [address] [id number] [place] [id number] Jul, [facility] [address] [id number], [place] [address] Jul, [facility] [address] [id number] [place] [id number] Mar, [facility] [address] [id number] [place] [id number] Mar, [facility] [address] [id number] [place] [id number] Mar, [facility] [address] [id number] [place] [id number] Mar, [facility] [address] [id number] [place] [id number] Mar, [facility] [address], [place] [address] Mar, [facility] [address] [facility] [id number], [place] [address] Mar, [facility] [address], [place] [address] Mar, [facility] [address], [place] [address] Mar, [facility] [address] [facility] [id number] [id number] Mar, [facility] [address] [facility] [id number], [place] [address] Jan, [facility] [address] [facility] [id number], [place] [address] Jan, [facility] [address] [facility] [id number], [place] [address] Jan, [facility] [address], [place] [address] Dec, [facility] [address] [id number], [place] [address] Dec, [facility] [address] [facility] [id number], [place] [address] November, [facility] [address] [facility] [id number], [place] [address] Oct, [facility] [address] [id number], [place] [address] Sep, [facility] [address] [facility] [id number], [place] [address] Sep, [facility] [address] [facility] [id number], [place] [address] Sep, [facility] [address], [place] [address] Sep, [facility] [address] [id number], [place] [address] Sep, [facility] [address] [id number], [place] [address] Sep, [facility] [address] [id number][place] [id number] Aug, [facility] [address] [id number], [place] [address] May, [facility] [address] [id number], [place] [address] 14 Dec, 2010 [facility] [address] [facility] [id number], [place] [address] Jun, [facility] [address] [facility] [id number], [place] [address] Jun, [facility] [address] [id number], [place] [address] Jun, IMMUNIZATIONS No Known Immunizations SOCIAL HISTORY Never Assessed REASON FOR VISIT results/letter PLAN OF CARE VITAL SIGNS MEDICATIONS Unknown [...]
--- NOTE | 2019-01-26 09:36 | NUR ---
LEFT MESSAGE FOR RANDY @ [facility] TO INQUIRE ABOUT PATIENTS POSSIBLE PLACEMENT AT [place].
[2019-01-26 10:07] LABS: BASOPHILS # (AUTO) 0.2 10^3/uL (0.0-0.1); BASOPHILS % (AUTO) 3 % (0-10); EOSINOPHILS # (AUTO) 0.4 10^3/uL (0.0-0.3); EOSINOPHILS % (AUTO) 7 % (0-10); HEMATOCRIT 43 % (35-52); HEMOGLOBIN 14.7 G/DL (11.5-16.0); LYMPHOCYTES # (AUTO) 1.8 X 10^3 (1.0-4.0); LYMPHOCYTES % (AUTO) 30 % (12-44); MEAN CORPUSCULAR HEMOGLOBIN 33 PG (25-34); MEAN CORPUSCULAR HGB CONC 35 G/DL (32-36); MEAN CORPUSCULAR VOLUME 95 FL (80-99); MEAN PLATELET VOLUME 9.9 FL (7.4-10.4); MONOCYTES # (AUTO) 0.4 X 10^3 (0.0-1.0); MONOCYTES % (AUTO) 7 % (0-12); NEUTROPHILS # (AUTO) 3.2 X 10^3 (1.8-7.8); NEUTROPHILS % (AUTO) 54 % (42-75); PLATELET COUNT 306 10^3/uL (130-400); RED CELL DISTRIBUTION WIDTH 13.9 % (10.0-14.5); WHITE BLOOD COUNT 5.9 10^3/uL (4.3-11.0)
[2019-01-26 10:08] LABS: BILIRUBIN,URINE NEGATIVE (NEGATIVE); CLARITY,URINE CLEAR; COLOR,URINE YELLOW; GLUCOSE, URINE (UA) NEGATIVE (NEGATIVE); KETONES,URINE NEGATIVE (NEGATIVE); LEUKOCYTE ESTERASE ,URINE NEGATIVE (NEGATIVE); NITRITE,URINE NEGATIVE (NEGATIVE); PH,URINE 6.5 (5-9); PROTEIN,URINE NEGATIVE (NEGATIVE); UROBILINOGEN,URINE NORMAL (NORMAL)
[2019-01-26 10:13] LABS: HCG,QUALITATIVE URINE NEGATIVE (NEGATIVE)
[2019-01-26 10:22] LABS: ALANINE AMINOTRANSFERASE 34 U/L (0-55); ALBUMIN 4.7 GM/DL (3.2-4.5); ALKALINE PHOSPHATASE 59 U/L (40-136); BILIRUBIN,TOTAL 0.4 MG/DL (0.1-1.0); BUN/CREATININE RATIO 8; CALCIUM 9.2 MG/DL (8.5-10.1); CARBON DIOXIDE 20 MMOL/L (21-32); CHLORIDE 106 MMOL/L (98-107); CREATININE SERUM 0.71 MG/DL (0.60-1.30); GFR ESTIMATED > 60; GLUCOSE 81 MG/DL (70-105); SALICYLATE < 5.0 MG/DL (5.0-20.0); SODIUM 137 MMOL/L (135-145); TOTAL PROTEIN 7.6 GM/DL (6.4-8.2)
[2019-01-26 10:27] LABS: BACTERIA,URINE TRACE /HPF
[2019-01-26 10:28] LABS: ACETAMINOPHEN < 10 UG/ML (10-30); AMPHETAMINE SCREEN, URINE NEGATIVE (NEGATIVE); BARBITURATE SCREEN URINE NEGATIVE (NEGATIVE); BENZODIAZEPINES SCREEN URINE NEGATIVE (NEGATIVE); CANNABINOID SCREEN, URINE NEGATIVE (NEGATIVE); COCAINE SCREEN URINE NEGATIVE (NEGATIVE); METHADONE STAT NEGATIVE (NEGATIVE); METHAMPHETAMINE SCREEN URINE S NEGATIVE (NEGATIVE); OPIATE SCREEN URINE NEGATIVE (NEGATIVE); OXYCODONE STAT NEGATIVE (NEGATIVE); PROPOXYPHENE STAT NEGATIVE (NEGATIVE); TRICYCLIC ANTIDEPRESSANTS SCRE NEGATIVE (NEGATIVE)
[2019-01-26] MEDS ORDERED: NICOTINE 2 MG LOZENGE (COMMIT) MM PRN (11:00)
--- NOTE | 2019-01-26 11:16 | ED Psychosocial ---
General Chief Complaint: Psych/Social Disorder Stated Complaint: MENTAL HEALTH EVALUATION Nursing Triage Note: PT AMB TO [facility] 8 WITH COMPLAINT OF WANTING PYSCH PLACEMENT. PT STATES SHE HAS BEEN STRUGGLING WITH DEPRESSION AND ALCOHOLISM. STATES SHE CONTACTED [facility] AND THEY ARE WORKING ON PLACEMENT AT [place]. PT STATES SHE HAS HAD SUICIDAL THOUGHTS, BUT DOES NOT HAVE A PLAN. PT STATES SHE DRINKS 1-2 BOTTLES OF WINE NIGHTLY. Source: patient Exam Limitations: no limitations History of Present Illness Date Seen by Provider: Jan 26, 2019 Time Seen by Provider: 11:11 Initial Comments To ER with reports of needing inpatient psychiatric placement. States that she's been dealing with depression and alcoholism for quite some time. The alcoholism includes 1-2 bottles of wine nightly for 6+ months, depression has been worsening culminating in suicidal ideations last night without any attempt or specific plan. She states "I just don't want to be alive". Timing/Duration: just prior to arrival Severity: moderate Allergies and Home Medications Allergies Coded Allergies: doxepin (Unverified Allergy, Unknown, 03/07/15) Home Medications Nitrofurantoin Monohyd/M-Cryst 100 Mg Capsule, 100 MG PO BID Prescribed by: LUTHER VERGARA on 10/08/17 1551 Tamsulosin HCl 0.4 Mg Cap, 0.4 MG PO DAILY Prescribed by: LUTHER VERGARA on 10/08/17 1551 Patient Home Medication List Home Medication List Reviewed: Yes Review of Systems Constitutional: see HPI EENTM: see HPI Respiratory: no symptoms reported Cardiovascular: no symptoms reported Genitourinary: no symptoms reported Musculoskeletal: no symptoms reported Skin: no symptoms reported Psychiatric/Neurological: See HPI Past Kdirwmg-Xagnoa-Wvbsjk Hx Patient Social History Alcohol Use: Regular Use Number of Drinks Today: 0 Alcohol Beverage of Choice: Wine Recreational Drug Use: No Smoking Status: Current Everyday Smoker Type Used: Cigarettes Recent Foreign Travel: No Contact w/Someone Who Travel: No Recent Infectious Disease Expo: No Recent Hopitalizations: No Physical Abuse: No Sexual Abuse: No Immunizations Up To Date Tetanus Booster (TDap): Unknown PED Vaccines UTD: Yes Past Medical History Surgeries: Yes (EXPLORATORY LAPAROTOMY 10/07/[address] KWAN FROM [place]) Abdominal, Section, Gallbladder Respiratory: No Cardiac: No Neurological: No Female Reproductive Disorders: Denies Genitourinary: No Gastrointestinal: No Musculoskeletal: No Endocrine: No HEENT: No Cancer: No Psychosocial: Yes Bipolar, Depression Integumentary: No Blood Disorders: No Adverse Reaction/Blood Tranf: No Physical Exam Vital Signs - First Documented 01/26/19 09:15 Temp 96.7 Pulse 71 Resp 16 B/P (MAP) 116/87 (97) Pulse Ox 96 O2 Delivery Room Air Capillary Refill : Less Than 3 Seconds Height, Weight, BMI Height: 5'5.00" Weight: 127lbs. oz. 57.739325ff; BMI Method:Stated General Appearance: WD/WN, no apparent distress HEENT: PERRL/EOMI, normal ENT inspection Respiratory: no respiratory distress, no accessory muscle use Gastrointestinal: normal bowel sounds, non tender, soft Extremities: normal range of motion, non-tender Neurologic/Psychiatric: alert, normal mood/affect, oriented x 3 Appearance/Memory: appropriate appearance, appropriate insight Behavior/Eye Contact: cooperative, good eye contact, normal speech Thoughts/Hallucinations: normal thought pattern, no apparent hallucination, auditory hallucinations Skin: normal color, warm/dry Progress/Results/Core Measures Results/Orders Lab Results Laboratory Tests Test 01/26/19 09:30 Range/Units White Blood Count 5.9 4.3-11.0 10^3/uL Red Blood Count 4.49 4.35-5.85 10^6/uL Hemoglobin 14.7 11.5-16.0 G/DL Hematocrit 43 35-52 % Mean Corpuscular Volume 95 80-99 FL Mean Corpuscular Hemoglobin 33 25-34 PG Mean Corpuscular Hemoglobin Concent 35 32-36 G/DL Red Cell Distribution Width 13.9 10.0-14.5 % Platelet Count 306 130-400 10^3/uL Mean Platelet Volume 9.9 7.4-10.4 FL Neutrophils (%) (Auto) 54 42-75 % Lymphocytes (%) (Auto) 30 12-44 % Monocytes (%) (Auto) 7 0-12 % Eosinophils (%) (Auto) 7 0-10 % Basophils (%) (Auto) 3 0-10 % Neutrophils # (Auto) 3.2 1.8-7.8 X 10^3 Lymphocytes # (Auto) 1.8 1.0-4.0 X 10^3 Monocytes # (Auto) 0.4 0.0-1.0 X 10^3 Eosinophils # (Auto) 0.4 H 0.0-0.3 10^3/uL Basophils # (Auto) 0.2 H 0.0-0.1 10^3/uL Urine Color YELLOW Urine Clarity CLEAR Urine pH 6.5 5-9 Urine Specific [place] 1.005 L 1.016-1.022 Urine Protein NEGATIVE NEGATIVE Urine Glucose (UA) NEGATIVE NEGATIVE Urine Ketones NEGATIVE NEGATIVE Urine Nitrite NEGATIVE NEGATIVE Urine Bilirubin NEGATIVE NEGATIVE Urine Urobilinogen NORMAL NORMAL MG/DL Urine Leukocyte Esterase NEGATIVE NEGATIVE Urine RBC (Auto) 5+ H NEGATIVE Urine RBC 2-5 H /HPF Urine WBC NONE /HPF Urine Squamous Epithelial Cells 2-5 /HPF Urine Crystals NONE /LPF Urine Bacteria TRACE /HPF Urine Casts NONE /LPF Urine Mucus NEGATIVE /LPF Urine Culture Indicated NO Urine Test NEGATIVE NEGATIVE Sodium Level 137 135-145 MMOL/L Potassium Level 4.0 3.6-5.0 MMOL/L Chloride Level 106 98-107 MMOL/L Carbon Dioxide Level 20 L 21-32 MMOL/L Anion Gap 11 5-14 MMOL/L Blood Urea Nitrogen 6 L 7-18 MG/DL Creatinine 0.71 0.60-1.30 MG/DL Estimat Glomerular Filtration Rate > 60 BUN/Creatinine Ratio 8 Glucose Level 81 70-105 MG/DL Calcium Level 9.2 8.5-10.1 MG/DL Corrected Calcium 8.5-10.1 MG/DL Total Bilirubin 0.4 0.1-1.0 MG/DL Aspartate Amino Transf (AST/SGOT) 40 H 5-34 U/L Alanine Aminotransferase (ALT/SGPT) 34 0-55 U/L Alkaline Phosphatase 59 40-136 U/L Total Protein 7.6 6.4-8.2 GM/DL Albumin 4.7 H 3.2-4.5 GM/DL TSH [facility] Testing 1.32 0.35-4.94 UIU/ML Salicylates Level < 5.0 L 5.0-20.0 MG/DL Urine Opiates Screen NEGATIVE NEGATIVE Urine Oxycodone Screen NEGATIVE NEGATIVE Urine Methadone Screen NEGATIVE NEGATIVE Urine Propoxyphene Screen NEGATIVE NEGATIVE Acetaminophen Level < 10 L 10-30 UG/ML Urine Barbiturates Screen NEGATIVE NEGATIVE Ur Tricyclic Antidepressants Screen NEGATIVE NEGATIVE Urine Phencyclidine Screen NEGATIVE NEGATIVE Urine Amphetamines Screen NEGATIVE NEGATIVE Urine Methamphetamines Screen NEGATIVE NEGATIVE Urine Benzodiazepines Screen NEGATIVE NEGATIVE Urine Cocaine Screen NEGATIVE NEGATIVE Urine Cannabinoids Screen NEGATIVE NEGATIVE Serum Alcohol 184 H <10 MG/DL My Orders Orders - OLIMPIA OROPEZA APRN Nicotine Lozenge (Commit Lozenge) (01/26/19 11:00) Medications Given in ED Current Medications Medications Dose Ordered Sig/Shannan Route Start Time Stop Time Status Last Admin Dose Admin Nicotine Polacrilex 2 mg PRN PRN MM 01/26/19 11:00 01/26/19 11:06 2 MG Vital Signs/I&O 01/26/19 09:15 Temp 96.7 Pulse 71 Resp 16 B/P (MAP) 116/87 (97) Pulse Ox 96 O2 Delivery Room Air Blood Pressure Mean: 97 Departure Communication (Admissions) 11:00-I spoke with [facility] in [place], they would like to have information To them. 1248-[facility] cannot accept. [facility] cannot accept due to bed status. [facility] does have beds. 1306-[facility] [place] in [place] has accepted the patient. will transport her out there. Impression Primary Impression: Depression Qualified Codes: F32.9 - Major depressive disorder, single episode, unspecified Additional Impression: Substance abuse Disposition: 03 XFER SNF Condition: Stable Departure-Patient Inst. Decision time for Depature: 12:50 [facility] Primary Care Physician Patient Instructions: ALCOHOL AND SUBSTANCE ABUSE, Depression OLIMPIA OROPEZA APRN Jan 26, 2019 11:16
[2019-01-26 13:11] VITALS: BP 116/87
== END 2019-01-26 13:11 ==
LOC: EDUNIT# 08:52 → ER 08:53
DX: F32.9 Major depressive disorder, single episode, unspecified (principal); F15.10 Other stimulant abuse, uncomplicated; F10.20 Alcohol dependence, uncomplicated; F17.210 Nicotine dependence, cigarettes, uncomplicated; Z88.8 Allergy status to other drugs, medicaments and biological substances; Y90.6 Blood alcohol level of 120-199 mg/100 ml
CPT/HCPCS: 36415; 80053; 80306; 80320; 80329; 81000; 84443; 84703; 85025; 93005